=== PATIENT | male | born 1960 | race Caucasian/White ===

== ENCOUNTER 2022-09-06 12:08 | Emergency (ER) | payer MEDICARE, SELFPAY ==
[2022-09-06 12:10] VITALS: BP 129/71; PULSE 68; RESP 18; TEMP 36.9; O2SAT 99; BMI 26.9
--- NOTE | 2022-09-06 12:22 | XR_ITS ---
FINAL REPORT CLINICAL HISTORY: fall FINDINGS: PA and lateral views of the chest are obtained. There is no prior exam for comparison. There are postoperative changes from median sternotomy. An endoluminal graft is present in the thoracic aorta. The cardiac and mediastinal silhouettes are within normal limits. The lungs are clear. There is elevation of the right hemidiaphragm. There is no pleural effusion, pneumothorax, or acute osseous abnormality. IMPRESSION: No radiographic evidence of acute cardiac or pulmonary disease. Authenticated and ERN
[2022-09-06 12:30] VITALS: BP 119/63; PULSE 59; O2SAT 99
[2022-09-06 12:42] VITALS: PULSE 57; O2SAT 96
--- NOTE | 2022-09-06 12:59 | XR_ITS ---
FINAL REPORT CLINICAL HISTORY: fall injury, pain rt shoulder FINDINGS: 2 views of the clavicle were obtained. There is no acute fracture or dislocation. 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 No acute soft tissue abnormality. IMPRESSION: No acute abnormality. Reviewed, Interpreted and Dictated by Lizzy Whaley MD Transcribed by Dash Etienne Authenticated and [facility]
--- NOTE | 2022-09-06 12:59 | XR_ITS ---
FINAL REPORT CLINICAL HISTORY: fall, shoulder injury FINDINGS: 3 views of the right shoulder were obtained. There is no prior exam for comparison. There is no fracture or dislocation. There is degenerative disease at the acromioclavicular joint. There is elevation of the distal clavicle, which is likely chronic. Soft tissues are normal. IMPRESSION: No acute osseous abnormality of the right shoulder. Reviewed, Interpreted and Dictated by Lizzy Whaley MD Transcribed by Dash Etienne Authenticated and [facility]
--- NOTE | 2022-09-06 13:03 | HMH.EDGENADL ---
Discharge Plan Disposition Patient Disposition: Home, Self-Care Referrals Follow up/Referrals: Amanda Coleman PA [Primary Care Provider] - See instructions Buster Crockett DO [Staff Physician] - See instructions (1-2 weeks for outpatient MRI if symptoms are not improving ) Activity Restrictions/Add. Instructions Additional Instructions/Restrictions: There is no evidence of any clavicle fracture or AC separation or shoulder dislocation. Please follow-up with Dr. Crockett if you are not improving in 1 to 2 weeks for outpatient MRI. Clinical Impressions Clinical Impression: Contusion of right shoulder Discharge ED Provider: Eric Ray General Adult HPI General Chief complaint: Fall Stated complaint: [email or web address], pain in collarbone Time Seen by Provider: 09/06/22 12:57 Mode of Arrival: Ambulatory Source of Information: Patient Limitations: No Limitations Description of Symptoms (Recalled from ER Triage Doc. by RN): Patient reports falling last night and states he thinks that he broke his right collar bone. History of Present Illness HPI narrative: 62-year-old male here with right shoulder injury states that he fell off some stairs yesterday. Landed directly onto his right shoulder has significant pain in the right lateral aspect of his clavicle area and anterior aspect of the right shoulder. He has had ecchymosis and difficulty moving his right arm since that time. No pain in his humerus. States he had a similar episode in the past where he broke his collarbone and that is what he believes happened again today. He has other chronic medical conditions including CLL and states that he had part of his lung removed in the past as well and his chronic dyspnea is not any different than normal. Related Data Allergies Allergy/AdvReac Type Severity Reaction Status Date / Time No Known Allergies Allergy Verified 09/06/22 12:22 [facility] Disclaimer: The information contained in this section may have been updated after the patient was seen, as this information can be updated by other users. Social History Smoking Status: Never smoker alcohol intake: never current occupational status: other Travel in the last 8 weeks: None ROS Obtained: Yes All systems reviewed & no additional complaints except as documented Physical Exam General General appearance: alert Respiratory Respiratory exam: Present normal lung sounds bilaterally; Absent respiratory distress Cardiovascular Cardiovascular exam: Present regular rate; Absent tachycardia Extremities Exam Extremities exam: Present other (Right shoulder there is ecchymosis on the anterior lateral aspect of the shoulder joint itself. No tenderness with compression of the humerus he does have focal tenderness over the AC joint and over the lateral one third of the clavicle. No step-offs or deformities noted) Neurological Exam Neurological exam: Present alert and oriented X3 Medical Decision Making Wan Inquiry Pt receiving controlled substance: No Vital Signs: 09/06/22 12:10 09/06/22 12:30 09/06/22 12:42 Temperature 98.5 F Temperature Source Oral Pulse Rate 59 L 57 L Pulse Rate [Radial] 68 Respiratory Rate 18 Blood Pressure 119/63 Blood Pressure [Right Arm] 129/71 Blood Pressure Mean [Right Arm] 90 Blood Pressure Source [Right Arm] Automatic Cuff Blood Pressure Position [Right Arm] Sitting 02 Sat by Pulse Oximetry 99 99 96 Oxygen Delivery Method Room Air Room Air 09/06/22 13:20 Temperature Temperature Source Pulse Rate 64 Pulse Rate [Radial] Respiratory Rate Blood Pressure Blood Pressure [Right Arm] Blood Pressure Mean [Right Arm] Blood Pressure Source [Right Arm] Blood Pressure Position [Right Arm] 02 Sat by Pulse Oximetry 88 L Oxygen Delivery Method Orders (Tests/Meds): ED MEDICATIONS Discontinued Medications Generic Name Dose Route Start Last Admin Trade Name Freq PRN Reason Stop Dose Admin
[2022-09-06 13:20] VITALS: PULSE 64; O2SAT 88
--- NOTE | 2022-09-06 13:21 | PC.NURSE ---
PT ARRIVED BACK TO ROOM FROM RAD
--- NOTE | 2022-09-06 13:30 | PC.NURSE ---
PUT A SLING ON PT ARM NOW READY FOR DISCHARGE
[2022-09-06 13:32] VITALS: BP 129/57; PULSE 72; RESP 18; TEMP 36.6; O2SAT 98
== END 2022-09-06 13:33 | disposition home or self-care (01) ==
PROVIDERS: Emergency Provider Student in an Organized Health Care Education/Training Program; PCP Physician Assistant
DX: S40.011A Contusion of right shoulder, initial encounter (principal); W10.8XXA Fall (on) (from) other stairs and steps, initial encounter
CPT/HCPCS: 71046; 73000; 73030; 99284